=== PATIENT | male | born 1970 | race Two or more races ===

== ENCOUNTER → 2024-04-02 | Outpatient (CLI) | payer MEDICAID, SELFPAY ==
--- NOTE | 2024-04-02 | XR_ITS ---
Examination: Knee bilateral, 4 views Technique: Knee AP, lateral, each knee total 4 views Date and time of exam: April 02, 2024 1130 hours INDICATIONS: Bilateral knee pain beginning years ago FINDINGS: Bilateral moderate to advanced tricompartment osteoarthritis, most severe medial patellofemoral joints Moderate osteopenia No fracture or dislocation involving either knee IMPRESSION: Bilateral moderate to advanced tricompartment osteoarthritis, most severe left knee
== END | disposition home or self-care (01) ==
PROVIDERS: PCP Physician Assistant Medical; Referring Provider Internal Medicine; Visit Provider Internal Medicine
DX: M17.0 Bilateral primary osteoarthritis of knee (principal)
CPT/HCPCS: 73560